=== PATIENT | female | born 1945 | race Caucasian/White ===

== ENCOUNTER 2019-03-22 12:42 | Day surgery (SDC) | payer MEDICARE, OTHER, SELFPAY ==
--- NOTE | 2019-03-22 | PATH_ITS ---
[facility] Accession Number: [id number] . 01 Material submitted: . colon - RECTOSIGMOID POLYP . 02 Diagnosis: Rectosigmoid Colon, Polyp: Hyperplastic polyp. [facility] 03/23/2019 1316 Local . 02 Electronically signed: . Chetan Edmonds MD, PhD, Pathologist NPI- [id number] . 01 Gross description: . RECTOSIGMOID POLYP: Received in formalin is 1 fragment(s) of john, soft tissue measuring 0.3 x 0.2 x 0.2 cm submitted entirely in 1 cassette(s) /[facility] 03/22/2019 2228 Local . 02 Pathologist provided ICD-10: K63.5 . 02 CPT . 826691 Performed at: 01 [facility] [address] [facility], [place], [place] [id number] MD Jose Miguel Yoon MD Phone: [phone] Performed at: 02 [facility] [address] [place], [place] [id number] MD Estela Oneill MD Phone: [phone]
--- NOTE | 2019-03-22 11:40 | PM.HP.1 ---
History of Present Illness History of Present Illness Date Patient Seen: 03/22/19 Chief complaint: [id number] COLONOSCOPY W/POSS BX Narrative: 73-year-old female seen at our office on 12/28/2018 due to rectal bleeding and diarrhea. Please see that note for further details. She is here for endoscopic evaluation for a source of her symptoms. On further questioning today the patient states that her stools are now formed and may have been even prior to the holiday season. She denies any further rectal bleeding Meds Home Medications and Allergies Home Medications Medication Instructions Recorded Confirmed Type estradiol [Estrace] 0.5 mg PO DAILY 03/22/19 03/22/19 History omeprazole 20 mg PO DAILY 03/22/19 03/22/19 History Allergies Allergy/AdvReac Type Severity Reaction Status Date / Time No Known Drug Allergies Allergy Verified 03/22/19 13:20 Exam Narrative Exam Narrative: General: Patient is well developed, not in apparent distress Cardiovascular: Regular rate and rhythm, no murmurs, rubs, or gallops; no evidence of edema; no palpable abdominal aortic aneurysm Gastrointestinal: Normoactive bowel sounds, soft, nontender, nondistended, no rebound tenderness, no hepatosplenomegaly, no evidence of hernia Assessment & Plan Assessment & Plan narrative: 73-year-old female who is here for endoscopic evaluation due to prior unexplained diarrhea and rectal bleeding. Regarding the procedure(s), the risks and potential complications, benefits, and alternatives (including not doing the procedure) were discussed with the patient. The risks include but are not limited to bleeding, splenic injury, infection, perforation which may require surgical intervention, missed lesions, and adverse reactions to sedative medicines. After a question and answer period, the patient agreed to proceed with the procedure(s) and gives informed consent.
[2019-03-22 13:22] VITALS: BP 121/78; PULSE 71; RESP 15; TEMP 36.4; O2SAT 95; BMI 25.8
[2019-03-22] MEDS: SODIUM CHLORIDE 0.9% 1,000 ML 70 ML IV (13:32)
[2019-03-22] MEDS: fentaNYL 250 MCG/5 ML INJ IV (14:36)
[2019-03-22] MEDS: MIDAZOLAM 5 MG/5 ML VIAL IV (14:37)
--- NOTE | 2019-03-22 15:00 | P.OP.ENDO_ITS ---
Operative Date/Time/Diagnoses Date of procedure: 03/22/19 Procedure Notes Procedure in detail: Surgeon: Mian Murillo MD Procedure: Colonoscopy with cold forceps polypectomy Preoperative diagnosis: Rectal bleeding, episodic diarrhea now resolved Postoperative diagnosis: Rectosigmoid polyp status post polypectomy, grade 2 internal hemorrhoids; normal-appearing colonic mucosa Medications: Conscious sedation using 4 mg IV of Midazolam and 100 mcg IV of Fentanyl Preanesthesia Assessment An H and P was performed/updated and the Px?s ASA class is 1. The procedure was discussed in detail with the patient. The potential risks and complications including infection, bleeding, missed lesions, perforation, need for surgery in case of perforation, prolonged hospital stay, and were explained. A brief question and answer period was allotted and once all questions were answered, informed consent was obtained. The patient was brought back to the procedure room and placed on standard monitoring. The patient?s vital signs were monitored continuously throughout the entire procedure. Prior to starting, a timeout was performed to confirm the patient?s identity, allergies, medications, and procedure. Procedure in detail The patient was placed in left lateral decubitus position and once adequate sedation was obtained a NOREEN was performed. The digital rectal examination did not reveal any palpable lesions. The tip of the colonoscope was placed in the anal canal and advanced without difficulty all the way to the cecum which was identified by the appendiceal orifice and the ileocecal valve. The terminal ileum was intubated for distance of 5 cm from the ileocecal valve and the mucosa appeared normal. The colonoscope was then brought back to the cecum and careful examination of all hudson of the colon was performed with irrigation of any residual stool. The colonic mucosa appeared normal throughout the entire colon and hence no random biopsies were obtained given the resolution of diarrhea since late last year The patient tolerated the procedure well and will be brought back to the recovery area to be discharged once criteria are met. The prep was judged to be good and adequate to identify polyps less than 5 mm. The withdrawal time was 9 minutes. The total physician intraservice time was 21 minutes. Complications There were no complications and estimated blood loss was minimal. Recommendations: Resume previous diet Continue outPx medications Follow up pathology results Repeat colonoscopy in 5 or 10 years depending on pathology results Call our office ([facility]) to schedule follow-up with Dr. Oquendo you have any recurrent symptoms An emergency contact number was given to the patient for any complications related to the procedure
[2019-03-22 15:04] VITALS: BP 119/63; PULSE 71; RESP 15; TEMP 36.2; O2SAT 98
[2019-03-22 15:09] VITALS: BP 124/69; PULSE 62; RESP 15; O2SAT 97
[2019-03-22 15:26] VITALS: BP 141/74; PULSE 60; RESP 16; TEMP 36.4; O2SAT 98
== END 2019-03-22 15:36 | disposition home or self-care (01) ==
PROVIDERS: Family Provider Student in an Organized Health Care Education/Training Program; PCP Naturopath; Visit Provider Internal Medicine Gastroenterology
PROC: 0DJD8ZZ Inspection of Lower Intestinal Tract, Via Natural or Artificial Opening Endoscopic (ICD-10-PCS; CPT 45378; principal; 2019-03-22 16:00)
DX: K62.5 Hemorrhage of anus and rectum (principal); R19.4 Change in bowel habit; R19.7 Diarrhea, unspecified; K64.1 Second degree hemorrhoids; K63.5 Polyp of colon
CPT/HCPCS: 45380; J2250; J3010